=== PATIENT | male | born 1980 | race Caucasian/White ===

== ENCOUNTER 2019-01-20 02:02 | Emergency (ER) | payer OTHER ==
[~2019-01-20] VITALS: Ht 180.3 cm; Wt 94.3 kg
[2019-01-20 02:08] VITALS: BP 113/73
--- NOTE | 2019-01-20 02:12 | NUR ---
PT AMBULATED TO BED #12
--- NOTE | 2019-01-20 02:15 | NUR ---
PT CAME INTO ER WITH C/O SOB X 1 DAY. PT STATED HE FELT DIZZY, AND SOME CHEST PAIN. PT HAS HAD A COUGH FOR 5 DAYS. PT STATES HE HAS A HARD TIME/PAIN BREATHING IN. LUNG SOUNDS CLEAR BILATERAL. ER MD MADE AWARE OF STATUS, SAFETY MEASURES IN PLACE. [facility] HX: NONE
[2019-01-20 03:19] VITALS: BP 113/73
--- NOTE | 2019-01-20 03:19 | NUR ---
Patient discharged with v/s stable. Written and verbal after care instructions given and explained. Patient alert, oriented and verbalized understanding of instructions. Ambulatory with steady gait. All questions addressed prior to discharge. ID band removed. Patient advised to follow up with PMD. Rx of TESSALON PERLES AND ALBUTEROL WAS given. Patient educated on indication of medication including possible reaction and side effects. Opportunity to ask questions provided and answered.
== END 2019-01-20 03:19 | disposition home or self-care (01) ==
LOC: MED 02:02
DX: J40 Bronchitis, not specified as acute or chronic (principal)
CPT/HCPCS: 36415; 71045; 85379; 99284; Q0092